=== PATIENT | female | born 1965 | race Hispanic/Latino ===

== ENCOUNTER 2017-07-02 10:16 | Outpatient (CLI) | payer BC | END 2017-07-02 10:17 | disposition home or self-care (01) | LOC: BICMAMMO 10:16 | PROVIDERS: ATTEND Student in an Organized Health Care Education/Training Program | DX: Z08 Encounter for follow-up examination after completed treatment for malignant neoplasm (principal); Z85.3 Personal history of malignant neoplasm of breast; Z80.3 Family history of malignant neoplasm of breast | CPT/HCPCS: G0279 ==

== ENCOUNTER 2018-01-28 09:49 | Outpatient (CLI) | payer BC ==
--- NOTE | 2018-01-28 11:28 | ULT ---
RIGHT UPPER QUADRANT SONOGARM: HISTORY: Abnormal liver function tests. FINDINGS: Echogenic sludge and stones are present within the gallbladder lumen. No gallbladder wall thickening or pericholecystic fluid. The common duct is 0.1 cm. The liver is enlarged at 19.9 cm and is diffu sely echogenic. No free fluid. IMPRESSION: 1. Cholelithiasis. No evidence of acute biliary obstruction. 2. Hepatosteatosis. POS: [facility]
== END 2018-01-28 09:50 | disposition home or self-care (01) ==
LOC: SCSULT 09:49
PROVIDERS: ATTEND Family Medicine
DX: R79.89 Other specified abnormal findings of blood chemistry (principal); K80.20 Calculus of gallbladder without cholecystitis without obstruction; K76.0 Fatty (change of) liver, not elsewhere classified
CPT/HCPCS: 76705

== ENCOUNTER 2018-06-01 00:07 | Outpatient (CLI) | payer BC ==
[2018-06-01 13:06] LABS: BHCG - Serum Negative (NEGATIVE); Pregs Control Background? CLEAR/WHITE (CLR/WHITE); Pregs Control Bar Appear? YES (CONTROL BAR)
[2018-06-01 13:08] LABS: #Basophils 0.1 thou/uL (0.0-0.2); #Eosinphils 0.1 thou/uL (0.0-0.7); #Lymphocytes 2.2 thou/uL (1.20-3.40); #Monocytes 0.4 thou/uL (0.11-0.59); #Neutrophils 4.5 thou/uL (1.40-6.50); %Basophils 1.1 % (0.0-1.0); %Eosinophils 1.2 % (0.0-10.0); %Lymphocytes 29.8 % (21.0-51.0); %Monocytes 5.8 % (0.0-10.0); %Neutrophils 62.2 % (42.0-75.0); Hemoglobin 13.2 g/dL (12.0-16.0); Mean Corpuscular HGB CONC 33.6 g/dL (32.0-36.0); Mean Corpuscular Hemoglobin 31.2 pg (27.0-31.0); Mean Corpuscular Volume 92.9 fL (78.0-98.0); Mean Platelet Volume 7.5 fL (7.4-10.4); Platelet Count 180 thou/uL (130-400); RBC Distribution Width 11.3 % (11.5-14.5); Red Blood Cell (RBC) Count 4.23 mill/uL (4.20-5.40); White Blood Cell (WBC) Count 7.2 thou/uL (4.8-10.8)
[2018-06-01 13:16] LABS: ALT (SGPT) 89 U/L (8-55); AST (SGOT) 73 U/L (5-34); Albumin 4.9 g/dL (3.5-5.0); Alkaline Phosphatase 76 U/L (40-150); Anion Gap 13 mmol/L (10-20); BUN (Urea Nitrogen) 11 mg/dL (7.0-18.7); Bilirubin, Total 0.4 mg/dL (0.2-1.2); Calc. Creatinine Clearance 0 mL/min (70-130); Calcium 10.1 mg/dL (7.8-10.44); Carbon Dioxide 26 mmol/L (22-29); Chloride 105 mmol/L (98-107); Estimated GFR-MDRD 82; Globulin 3.2 g/dL (2.4-3.5); Glucose 98 mg/dL (70-105); Potassium 3.8 mmol/L (3.5-5.1); Protein, Total 8.1 g/dL (6.0-8.3); Sodium 140 mmol/L (136-145)
== END 2018-06-01 00:08 | disposition home or self-care (01) ==
LOC: LABBT 00:07
PROVIDERS: ATTEND Specialist
DX: Z01.812 Encounter for preprocedural laboratory examination (principal); K80.20 Calculus of gallbladder without cholecystitis without obstruction
CPT/HCPCS: 80053; 84703; 85025

== ENCOUNTER 2018-06-04 06:06 | Day surgery (SDC) | payer BC ==
[2018-06-01 11:37] VITALS: BMI 27.4
[2018-06-04] MEDS ORDERED: Ketorolac Tromethamine 30 MG/ML VIAL ONE (06:42)
[2018-06-04] MEDS ORDERED: Bupivacaine/Epinephrine 0.25% 30 ML VIAL ONE (07:02)
[2018-06-04] MEDS ORDERED: Fentanyl 100 MCG/2 ML VIAL ONE (07:09)
[2018-06-04] MEDS ORDERED: Rocuronium Bromide 10 MG/ML (10ML VIAL) ONE (10:14)
[2018-06-04] MEDS ORDERED: Ondansetron PF 4 MG/2 ML Vial ONE (10:14)
[2018-06-04] MEDS ORDERED: Glycopyrrolate 0.2 MG/ML 5 ML SYRINGE ONE (10:14)
[2018-06-04] MEDS ORDERED: Dexamethasone 20 MG/5 ML VIAL ONE (10:14)
[2018-06-04] MEDS ORDERED: PROPOFOL 200 MG/20 ML VIAL ONE (10:14)
[2018-06-04] MEDS ORDERED: Promethazine HCl 25 MG/ML VIAL ONE (10:19)
--- NOTE | 2018-06-08 11:28 | OP ---
DATE OF PROCEDURE: 06/04/2018 ANESTHESIA: General endotracheal. PREOPERATIVE DIAGNOSIS: Symptomatic cholelithiasis. POSTOPERATIVE DIAGNOSIS: Symptomatic cholelithiasis. OPERATION PERFORMED: Laparoscopic cholecystectomy. INDICATIONS: The patient is a 53-year-old female. She presents with symptoms referable to gallbladder and ultrasound proven cholelithiasis. She is taken to the operative room at this time for laparoscopic cholecystectomy. PROCEDURE IN DETAIL: Informed consent was obtained. The patient was taken to the operating room where general endotracheal anesthesia was obtained with the patient in the supine position. The abdomen was prepped with Betadine and draped in the usual sterile fashion. 0.25% Marcaine with epinephrine was infiltrated below the umbilicus and a 10 mm infraumbilical incision was created. A Veress needle was passed through this incision into the peritoneal cavity. A pneumoperitoneum was established using carbon dioxide up to a pressure of 15 mmHg. Local anesthetic was infiltrated and 3 additional 5 mm right upper quadrant incisions were created. Through the mid incision, a 5 mm port was passed into the peritoneal cavity. The camera was passed through this port and under direct vision, an 11 port was passed through the infraumbilical incision. The camera was replaced through this port, and under direct vision, 2 additional 5 mm ports were passed through the incisions already created. The gallbladder was grasped and retracted in a cephalad direction. Minimal adhesions were bluntly stripped away from the apex of the gallbladder, and the apex was retracted laterally and inferiorly. Careful dissection was carried out to the apex of the gallbladder to identify the cystic duct and cystic artery. These were each carefully dissected circumferentially. The duct was of normal caliber. Both the duct and the artery were divided between clips, leaving 2 on the side to remain within the abdomen. The gallbladder was then dissected out of the gallbladder fossa using electrocautery and removed through the infraumbilical port site. The fascia was closed with 0 Vicryl suture and a GraNee needle. The right upper quadrant was inspected and irrigated. All irrigant was aspirated. All ports and instruments were removed under direct vision. Pneumoperitoneum was carefully evacuated. Additional local anesthetic was infiltrated into each port site. The skin edges were approximated with 4-0 Monocryl subcuticular sutures, and Dermabond was placed externally. There were no complications. The patient tolerated the procedure well and was taken to the recovery room in stable condition. FINDINGS: The patient's gallbladder was without any significant inflammation or adhesions. The surgery was performed uneventfully with no visible blood loss. There were no complications during the procedure. The patient tolerated the procedure well, was taken to recovery room in stable condition. Job ID: [id number]
== END 2018-06-04 10:56 | disposition home or self-care (01) ==
LOC: SDC 06:06
PROVIDERS: ATTEND Specialist
PROC: 0FT44ZZ Resection of Gallbladder, Percutaneous Endoscopic Approach (ICD-10-PCS; principal; 2018-06-04)
DX: K80.10 Calculus of gallbladder with chronic cholecystitis without obstruction (principal); E78.00 Pure hypercholesterolemia, unspecified; E55.9 Vitamin D deficiency, unspecified; Z79.899 Other long term (current) drug therapy; Z88.0 Allergy status to penicillin
CPT/HCPCS: 88304; J0131; J0690; J1885; J2550; J3010

== ENCOUNTER 2018-09-30 08:35 | Outpatient (CLI) | payer BC ==
--- NOTE | 2018-09-30 09:13 | MMO ---
Left Breast MAMMO Unilat Diag DDI LT+YEHUDA. CLINICAL HISTORY: Patient is 53 years old and is seen for diagnostic exam. The patient has the following family history of breast cancer: sister, at age 49. The patient has a history of right Implants in 2014, right Mastectomy in 2014, right Excisional Biopsy in Jun, 2009 - benign and right Excisional Biopsy in November, - benign. VIEWS: The views performed were: left craniocaudal with tomosynthesis; left mediolateral oblique with tomosynthesis; and left mediolateral with tomosynthesis. FILMS COMPARED: The present examination has been compared to prior imaging studies performed at [facility] on 06/29/2014, 06/30/2015, 07/01/2016 and 07/02/2017. MAMMOGRAM FINDINGS: The breast is heterogeneously dense, which could obscure a lesion on mammography. There are stable benign appearing calcifications seen in the left breast. There are no suspicious masses, suspicious calcifications, or new areas of architectural distortion. IMPRESSION: THERE IS NO MAMMOGRAPHIC EVIDENCE OF MALIGNANCY. A ROUTINE FOLLOW-UP MAMMOGRAM IN 1 YEAR IS RECOMMENDED. THE RESULTS OF THIS EXAM WERE SENT TO THE PATIENT. ACR BI-RADS Category 2 - Benign finding MAMMOGRAPHY NOTE: 1. A negative mammogram report should not delay a biopsy if a dominant of clinically suspicious mass is present. 2. Approximately 10% to 15% of breast cancers are not detected by mammography. 3. Adenosis and dense breasts may obscure an underlying neoplasm. Reported by: MARY MORALES MD Electonically Signed: [id number]
== END 2018-09-30 08:36 | disposition home or self-care (01) ==
LOC: BICMAMMO 08:35
PROVIDERS: ATTEND Internal Medicine Hematology & Oncology
DX: D05.11 Intraductal carcinoma in situ of right breast (principal); Z80.3 Family history of malignant neoplasm of breast; Z98.82 Breast implant status; Z91.89 Other specified personal risk factors, not elsewhere classified
CPT/HCPCS: G0279

== ENCOUNTER 2019-09-01 08:59 | Outpatient (CLI) | payer BC ==
--- NOTE | 2019-09-01 09:46 | ULT ---
Ultrasound hepatic Doppler duplex: DATE: 09/01/2019 HISTORY: Elevated liver function tests and steatosis of liver. TECHNIQUE: Grayscale, color-flow, and spectral analysis, of liver, spleen, and main blood vessels associated wit h liver. FINDINGS: No splenomegaly. Hepatic echogenicity is diffusely, homogeneously increased. No signal dropout in deep goodrich. This ma y or may not represent fatty liver. No hepatomegaly. No focal hepatic mass lesion identified (although CT with contrast, and MRI with and without contrast, is much more sensitive for the detecti on of liver masses than ultrasound). No intrahepatic biliary ductal dilation. Gallbladder surgically absent. Common duct caliber 5 mm. Portal vein: Hepatopetal flow with appropriate portal venous Doppler waveform. Hepatic veins: Hepatofugal flow with appropriate pulse Doppler waveforms. Hepatic artery: Normal arterial waveform. Splenic vein: Hepatopetal flow with appropriate portal venous pulse Doppler waveform. IMPRESSION: 1. Questionable hepatic steatosis. 2. Status post cholecystectomy. 3. Otherwise negative.
== END 2019-09-01 09:00 | disposition home or self-care (01) ==
LOC: BICULT 08:59
PROVIDERS: ATTEND Internal Medicine Gastroenterology
DX: K76.0 Fatty (change of) liver, not elsewhere classified (principal); R94.5 Abnormal results of liver function studies; Z90.49 Acquired absence of other specified parts of digestive tract
CPT/HCPCS: 36415; 76705; 80053

== ENCOUNTER 2020-10-09 08:37 | Outpatient (CLI) | payer BC | END 2020-10-09 08:38 | disposition home or self-care (01) | LOC: BICMAMMO 08:37 | PROVIDERS: ATTEND Student in an Organized Health Care Education/Training Program | DX: Z12.31 Encounter for screening mammogram for malignant neoplasm of breast (principal); Z13.820 Encounter for screening for osteoporosis; Z80.3 Family history of malignant neoplasm of breast; Z85.3 Personal history of malignant neoplasm of breast; Z90.11 Acquired absence of right breast and nipple; Z91.89 Other specified personal risk factors, not elsewhere classified; Z98.82 Breast implant status | CPT/HCPCS: 77063; 77067; 77080 ==

== ENCOUNTER 2021-06-15 08:33 | Outpatient (CLI) | payer BC | END 2021-06-15 08:34 | disposition home or self-care (01) | LOC: BICULT 08:33 | PROVIDERS: ATTEND Physician Assistant | DX: R07.81 Pleurodynia (principal); R10.11 Right upper quadrant pain; K76.0 Fatty (change of) liver, not elsewhere classified | CPT/HCPCS: 76705 ==

== ENCOUNTER 2021-07-13 12:03 | Outpatient (CLI) | payer BC | END 2021-07-13 12:04 | disposition home or self-care (01) | LOC: RAD 12:03 | PROVIDERS: ATTEND Family Medicine | DX: R20.0 Anesthesia of skin (principal); M47.812 Spondylosis without myelopathy or radiculopathy, cervical region | CPT/HCPCS: 72040 ==

== ENCOUNTER 2021-07-23 17:38 | Emergency (ER) | payer BC ==
[2021-07-23 18:28] LABS: #Eosinphils 0.1 thou/uL (0.0-0.7); #Lymphocytes 2.4 thou/uL (1.20-3.40); #Monocytes 0.5 thou/uL (0.11-0.59); #Neutrophils 4.6 thou/uL (1.40-6.50); %Basophils 0.1 % (0.0-1.0); %Lymphocytes 31.9 % (21.0-51.0); %Monocytes 6.2 % (0.0-10.0); %Neutrophils 60.9 % (42.0-75.0); Hemoglobin 13.9 g/dL (12.0-16.0); Mean Corpuscular HGB CONC 35.2 g/dL (32.0-36.0); Mean Corpuscular Hemoglobin 32.2 pg (27.0-31.0); Mean Corpuscular Volume 91.3 fL (78.0-98.0); Mean Platelet Volume 7.3 fL (7.4-10.4); Platelet Count 180 thou/uL (130-400); Red Blood Cell (RBC) Count 4.32 mill/uL (4.20-5.40); White Blood Cell (WBC) Count 7.5 thou/uL (4.8-10.8)
[2021-07-23 18:53] LABS: ALT (SGPT) 69 U/L (8-55); AST (SGOT) 51 U/L (5-34); Albumin 4.7 g/dL (3.5-5.0); Alkaline Phosphatase 88 U/L (40-110); Anion Gap 15 mmol/L (10-20); BUN (Urea Nitrogen) 11 mg/dL (9.8-20.1); Bilirubin, Total 0.4 mg/dL (0.2-1.2); Calc. Creatinine Clearance 0 mL/min (70-130); Calcium 9.5 mg/dL (7.8-10.44); Carbon Dioxide 24 mmol/L (22-29); Chloride 105 mmol/L (98-107); Globulin 3.8 g/dL (2.4-3.5); Glucose 123 mg/dL (70-105); Potassium 4.1 mmol/L (3.5-5.1); Protein, Total 8.5 g/dL (6.0-8.3); Sodium 140 mmol/L (136-145)
== END 2021-07-23 20:05 | disposition home or self-care (01) ==
LOC: ERS 17:38
DX: M79.601 Pain in right arm (principal); R07.9 Chest pain, unspecified; I10 Essential (primary) hypertension
CPT/HCPCS: 71045; 80053; 84443; 84484; 85025; 85379; 93005

== ENCOUNTER 2022-01-30 08:35 | Outpatient (CLI) | payer BC | END 2022-01-30 08:36 | disposition home or self-care (01) | LOC: BICMAMMO 08:35 | PROVIDERS: ATTEND Family Medicine | DX: Z12.31 Encounter for screening mammogram for malignant neoplasm of breast (principal); Z90.11 Acquired absence of right breast and nipple; Z98.82 Breast implant status | CPT/HCPCS: 77063; 77067 ==